=== PATIENT | female | born 1960 | race Caucasian/White ===

== ENCOUNTER → 2018-05-02 | Outpatient (CLI) | payer OTHER ==
[~2018-05-02] MED LIST: CHOL10002 PO; CIPRO500 MG PO; CLON.1 PO; CLON.2 PO; LEVO750 PO; LISHYD1012 PO; LOSA50 PO; OMEP20ER PO; OXYACE5T PO; TRIHYD253B PO; Ultram50 MG PO
[2018-05-06 14:10] LABS: HPV 16 Negative (Negative); HPV 18 Negative (Negative); HPV OTHER HR TYPES Negative (Negative)
== END | disposition home or self-care (01) ==
LOC: LAB 13:03 → LAB SHORT 13:03
PROVIDERS: Nurse Practitioner Women's Health
DX: Z12.4 Encounter for screening for malignant neoplasm of cervix (principal)
CPT/HCPCS: 87624; G0123

== ENCOUNTER → 2018-05-08 | Outpatient (CLI) | payer OTHER | END | disposition home or self-care (01) | LOC: PLD 07:22 → LAB SHORT 07:22 | DX: N84.0 Polyp of corpus uteri (principal); N87.9 Dysplasia of cervix uteri, unspecified | CPT/HCPCS: 88305 ==

== ENCOUNTER → 2019-08-10 | Outpatient (CLI) | payer OTHER | END | disposition home or self-care (01) | LOC: LAB SHORT 10:00 → LAB 10:00 | DX: R35.0 Frequency of micturition (principal) | CPT/HCPCS: 87077; 87086; 87186 ==

== ENCOUNTER 2021-01-23 07:15 | Inpatient (IN) | payer OTHER, SELFPAY ==
[~2021-01-23] VITALS: Ht 160 cm; Wt 97.7 kg
[~2021-01-23 07:15] MED LIST changes: +ATEN100 PO; +ATOR20 PO; -CHOL10002 PO; +Glucophage 850850 MG PO; +TIZA4; +VITAMIN D31000 UNI1 PO
[2021-01-23 08:24] LABS: Source, Urine Clean Catch
[2021-01-23 08:40] LABS: BASOPHILS ABSOLUTE AUTO 0.03 K/mm3 (0.00-0.23); BASOPHILS PERCENT AUTO 0 % (0-2); EOSINOPHILS PERCENT AUTO 0 % (0-6); Hematocrit 31.6 % (33.0-51.0); Hemoglobin 11.6 g/dL (11.5-16.0); IMMATURE GRAN PERCENT AUTO 1 % (0-1); LYMPHOCYTES PERCENT AUTO 9 % (21-46); MONOCYTES PERCENT AUTO 10 % (4-13); Mean Corpuscular HGB 31.9 pg (26.0-34.0); Mean Corpuscular HGB Conc 36.7 g/dL (31.5-36.5); Mean Corpuscular Volume 87 fL (80-100); Mean Platelet Volume 10.4 fL (9.1-12.4); NEUTROPHILS ABSOLUTE AUTO 12.74 K/mm3 (1.96-9.15); NEUTROPHILS PERCENT AUTO 81 % (41-73); Platelet Count 142 K/mm3 (150-400); RDW Coefficient Variation 11.9 % (11.7-14.2); RDW Standard Deviation 38.3 fL (35.1-46.3); Red Blood Cell Count 3.64 M/mm3 (3.80-5.20); White Blood Cell Count 15.77 K/mm3 (4.00-11.30)
[2021-01-23 08:44] LABS: Bilirubin, Urine Neg (Neg); Blood, Urine 3+ (Neg); Glucose Qualitative, Urine 1+ (Neg); Ketones, Urine Neg (Neg); Leukocyte Esterase, Urine 2+ (Neg); Nitrite, Urine Neg (Neg); Protein, Urine 3+ (Neg); Urobilinogen, Urine NORM (Normal)
[2021-01-23 08:55] LABS: Albumin, Blood 3.2 g/dL (3.4-5.0); Albumin/Globulin Ratio 0.7 (0.8-1.8); Bilirubin, Total 1.1 mg/dL (0.1-1.0); Bun/Creatinine Ratio 15.5 (12.0-20.0); Calcium, Blood 8.9 mg/dL (8.5-10.1); Creatinine, Blood 1.48 mg/dL (0.40-1.00); Globulin, Blood 4.3 g/dL (2.2-4.0); Potassium, Blood 3.5 mmol/L (3.5-5.5); Total Protein, Blood 7.5 g/dL (6.4-8.2)
[2021-01-23 09:07] LABS: Appearance, Urine Hazy (Clear); Color, Urine Yellow (P-Yellow)
[2021-01-23 09:08] LABS: Squamous Epithelial Cells Mod /hpf (Few)
[2021-01-23 09:09] LABS: Amorphous Light (0-Heavy); Bacteria Mod /hpf
[2021-01-23 10:01] LABS: Source, Urine Catheter
[2021-01-23 10:05] LABS: Appearance, Urine Cloudy (Clear); Bilirubin, Urine Neg (Neg); Blood, Urine 3+ (Neg); Color, Urine Yellow (P-Yellow); Glucose Qualitative, Urine 1+ (Neg); Ketones, Urine Neg (Neg); Leukocyte Esterase, Urine 2+ (Neg); Nitrite, Urine Neg (Neg); Protein, Urine 4+ (Neg); Urobilinogen, Urine NORM (Normal)
[2021-01-23 10:18] LABS: Amorphous Mod (0-Heavy); Bacteria Few /hpf; Mucus Light (0-Heavy); Squamous Epithelial Cells Not Seen /hpf (Few)
[2021-01-23] MEDS ORDERED: HYDCHL25 PO (12:06)
[2021-01-23] MEDS ORDERED: AMLODIPINE BESY10 MG PO (12:07)
[2021-01-23] MEDS ORDERED: CARVEDILOL12.5 MG PO (12:07)
[2021-01-23] MEDS ORDERED: SPIRONOLACTONE25 MG PO (12:07)
--- NOTE | 2021-01-23 13:00 | NUR ---
ASSUMED CARE: PT ASSISTED TO BSC. WEAKNESS NOTED. VOID OCCURRED, PT STATED IT BURNED DURING URINATION. TELE APPLIED AND PT IS NSR IN 80S. VSS AT THIS TIME. IVFS RUNNING. NO ACUTE NEEDS AT THIS TIME.
--- NOTE | 2021-01-23 16:43 | NUR ---
CALL TO DR BELL TO GIVE HIM AN UPDATE ON PT'S STATUS. 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 DR DELGADO THAT PT HAS BEEN HAVING N/V. NO CHANGES TO IVFS AT THIS TIME.
--- NOTE | 2021-01-23 18:42 | NUR ---
REPORT GIVEN TO MARCELINA ZHANG. PT TRANSFERRED VIA WHEEL CHAIR TO [facility]. PT STATED SHE WOULD CALL AND LET HIM KNOW OF KNEW BED ASSIGNMENT. PT REMAINS ON IV FLUIDS, TOOK A FEW BITES OF DINNER AND FELT SHE HAD NO APPETITE, UNDERLYING NAUSEA BUT NO FURTHER VOMITING. 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 NO FURTHER NEEDS OR CONCERNS.
[2021-01-24 03:27] LABS: BASOPHILS ABSOLUTE AUTO 0.01 K/mm3 (0.00-0.23); BASOPHILS PERCENT AUTO 0 % (0-2); EOSINOPHILS PERCENT AUTO 0 % (0-6); Hematocrit 28.3 % (33.0-51.0); Hemoglobin 10.1 g/dL (11.5-16.0); IMMATURE GRAN ABSOLUTE AUTO 0.03 K/mm3 (0.00-0.10); IMMATURE GRAN PERCENT AUTO 0 % (0-1); LYMPHOCYTES ABSOLUTE AUTO 0.88 K/mm3 (0.84-5.20); LYMPHOCYTES PERCENT AUTO 10 % (21-46); MONOCYTES ABSOLUTE AUTO 0.57 K/mm3 (0.16-1.47); MONOCYTES PERCENT AUTO 7 % (4-13); Mean Corpuscular HGB 31.9 pg (26.0-34.0); Mean Corpuscular HGB Conc 35.7 g/dL (31.5-36.5); Mean Corpuscular Volume 89 fL (80-100); NEUTROPHILS ABSOLUTE AUTO 6.99 K/mm3 (1.96-9.15); NEUTROPHILS PERCENT AUTO 82 % (41-73); Platelet Count 142 K/mm3 (150-400); RDW Standard Deviation 39.4 fL (35.1-46.3); Red Blood Cell Count 3.17 M/mm3 (3.80-5.20); White Blood Cell Count 8.48 K/mm3 (4.00-11.30)
--- NOTE | 2021-01-24 03:38 | NUR ---
THIS LN TOOK OVER CARE AT 1845 PATIENT IS ALERT AND ORIENTATED, LYING IN BED WATCHING TV ABLE TO MAKE NEEDS KNOWN, C/O OF HEADACHE TONIGHT RESOLVED WITH TYLENOL, SPIKED A TEMP AT THE SAME TIME OF 100.5, RESOLVED WITH TYLENOL REMAINED AFEBRILE, PATIENT IS DIAPHORETIC THIS AM STATES " HAS HOT FLASHES AND NIGHT SWEATS AT HOME FOR ABOUT 12 YEARS NOW" GAVE PATIENT AN ICE PACK WITH GOOD RESULTS. NO C/O OF PAIN THIS SHIFT, SLEEPING THROUGHOUT NIGHT.
[2021-01-24 03:45] LABS: Alanine Aminotransfer (ALT/SGP 19 U/L (12-78); Albumin, Blood 2.5 g/dL (3.4-5.0); Albumin/Globulin Ratio 0.6 (0.8-1.8); Alk Phos 92 U/L (50-136); Anion Gap 6 mmol/L (6-16); Aspartate Aminotrans (AST/SGOT 20 U/L (12-37); Bilirubin, Total 0.6 mg/dL (0.1-1.0); Blood Urea Nitrogen 16 mg/dL (8-24); Bun/Creatinine Ratio 17.7 (12.0-20.0); CO2, Blood 22 mmol/L (21-32); Chloride, Blood 107 mmol/L (98-108); Globulin, Blood 3.9 g/dL (2.2-4.0); Glomerular Filtration Rate >60 (60-); Glucose, Blood 174 mg/dL (70-99); Potassium, Blood 3.5 mmol/L (3.5-5.5); Sodium, Blood 135 mmol/L (136-145); Total Protein, Blood 6.4 g/dL (6.4-8.2)
--- NOTE | 2021-01-24 16:40 | NUR ---
NO ACUTE CHANGE FOR THE SHIFT, VITALS HAS BEEN STABLE. STATUS CHANGED TO MEDICAL WITH NO TELE. STILL HAS SOME BACK PAIN AND HEADACHE PAIN MEDICINE SWITCHED TO MORPHINE AND WAS MORE EFFECTIVE. PT CONTINUES ON IV ABO. HAD A DECENT BM THIS AM WAS STARTED ON STOOL SOFTENER, NO OTHER ISSUES REPORTED FOR THE SHIFT, PT TO POSS DC IN AM IF STABLE. WILL MONITOR UNTIL END OF SHIFT
--- NOTE | 2021-01-25 06:28 | NUR ---
PATIENT SLEPT THROUGHOUT MOST OF THE NIGHT C/O OF PAIN X 2 RECEIVED MORPHINE 1MG IVP WITH GOOD RESULTS, SIGRID MIDLINE IS SALINE LOCKED, IV ABX GIVEN, INDEPENDENT TO THE BATHROOM, STEADY GAIT, ABLE TO MAKE NEEDS KNOWN, CALLS APPROPRIATELY, SITTING UP WATCHING TV THIS AM.
[2021-01-25] MEDS ORDERED: Florastor250 MG PO (10:27)
[2021-01-25] MEDS ORDERED: LEVFLO500 PO (10:28)
--- NOTE | 2021-01-25 11:30 | NUR ---
PT DISCHARGED TO HOME TODAY WITH DISCHARGE ORDERS. PT TO CONTINUE PO ANTIBIOTICS AT HOME. NO OTHER ISSUES OR COMPLAINS THIS AM, VITALS HAS BEEN STABLE, PT HAS BEEN INDEPENDENT IN THE ROOM. DISCHARGE INSTRUCTIONS AND NEW MEDICATIONS DISCLOSED WITH THE PT, PT VERBALIZED UNDERSTANDING. ALL BELONGINGS SENT HOME WITH THE PT, PICKED UP PT AND PROVIDED TRANSPORTATION.
== END 2021-01-25 11:19 | disposition home or self-care (01) | DRG 872 ==
LOC: ER 07:15 → ICUE 11:42 → ICUW 11:42 → ICUE 12:43 → PCU 17:49
PROVIDERS: Emergency Medicine; Nurse Practitioner Acute Care; ADMIT Internal Medicine
DX: A41.51 Sepsis due to Escherichia coli [E. coli] (principal); N17.9 Acute kidney failure, unspecified; E87.1 Hypo-osmolality and hyponatremia; N39.0 Urinary tract infection, site not specified; N12 Tubulo-interstitial nephritis, not specified as acute or chronic; R65.20 Severe sepsis without septic shock; E11.65 Type 2 diabetes mellitus with hyperglycemia; I95.2 Hypotension due to drugs; T40.2X5A Adverse effect of other opioids, initial encounter; Z68.35 Body mass index [BMI] 35.0-35.9, adult; E66.01 Morbid (severe) obesity due to excess calories; G47.33 Obstructive sleep apnea (adult) (pediatric); E78.5 Hyperlipidemia, unspecified; I10 Essential (primary) hypertension; Z90.710 Acquired absence of both cervix and uterus; Z90.722 Acquired absence of ovaries, bilateral; Z79.899 Other long term (current) drug therapy; Z79.84 Long term (current) use of oral hypoglycemic drugs; Z88.8 Allergy status to other drugs, medicaments and biological substances; Z87.891 Personal history of nicotine dependence
CPT/HCPCS: 36415; 71045; 74176; 80053; 81001; 82947; 83605; 83690; 83735; 84145; 85025; 87040; 87077; 87086; 87186; 94660; 94762; 96365; 96375; 96376; 99285-25; A9270; J0692; J0696; J1170; J1644; J1885; J2270; J2405; J3010; J3475; J7030; P9612

== ENCOUNTER → 2021-04-03 | Outpatient (CLI) | payer OTHER ==
[~2021-04-03] MED LIST changes: +AMLODIPINE BESY10 MG PO; +CARVEDILOL12.5 MG PO; +Florastor250 MG PO; +HYDCHL25 PO; +LEVFLO500 PO; +SPIRONOLACTONE25 MG PO
[2021-04-03 13:28] LABS: Appearance, Urine Clear (Clear); Bilirubin, Urine Neg (Neg); Blood, Urine Neg (Neg); Glucose Qualitative, Urine Neg (Neg); Ketones, Urine Neg (Neg); Leukocyte Esterase, Urine Neg (Neg); Nitrite, Urine Pos (Neg); Protein, Urine Neg (Neg); Urobilinogen, Urine NORM (Normal)
[2021-04-03 13:51] LABS: Color, Urine Pale Yellow (P-Yellow)
[2021-04-03 13:52] LABS: Bacteria Many /hpf; Red Blood Cells, Urine 0-2 /hpf (0-2); Squamous Epithelial Cells Rare /hpf (Few); White Blood Cells, Urine 0-2 /hpf (0-5)
== END | disposition home or self-care (01) ==
LOC: LAB SHORT 09:21 → LAB 09:21
PROVIDERS: Physician Assistant
DX: N23 Unspecified renal colic (principal); N12 Tubulo-interstitial nephritis, not specified as acute or chronic
CPT/HCPCS: 81001; 87077; 87086; 87186

== ENCOUNTER → 2021-07-08 | Outpatient (CLI) | payer OTHER | END | disposition home or self-care (01) | LOC: LAB SHORT 09:50 → LAB 09:50 | DX: R35.0 Frequency of micturition (principal) | CPT/HCPCS: 87077; 87086; 87186 ==

== ENCOUNTER → 2023-06-27 | Outpatient (CLI) | payer OTHER | LOC: LAB SHORT 07:49 → PLD 07:49 | DX: L60.2 Onychogryphosis (principal); B35.1 Tinea unguium | CPT/HCPCS: 88305; 88312 ==

== ENCOUNTER → 2024-07-01 | Outpatient (CLI) | payer OTHER | END | disposition home or self-care (01) | LOC: LAB 13:02 → LAB SHORT 13:02 | DX: R30.0 Dysuria (principal) | CPT/HCPCS: 87077; 87086; 87186 ==

== ENCOUNTER 2024-10-27 07:03 | Emergency (ER) | payer OTHER ==
[~2024-10-27] VITALS: Ht 160 cm; Wt 85.7 kg
[2024-10-27] MEDS ORDERED: Prochlorperazine Edisylate 10 mg Vial IV ONE (07:35)
[2024-10-27] MEDS ORDERED: Meclizine HCl 25 MG Tab PO ONE (07:35)
[2024-10-27] MEDS ORDERED: MOTION RELIEF25 MG PO (08:50)
[2024-10-27 09:00] VITALS: BP 117/74
== END 2024-10-27 09:01 | disposition home or self-care (01) ==
LOC: ER 07:03
DX: R42 Dizziness and giddiness (principal); I10 Essential (primary) hypertension; E11.9 Type 2 diabetes mellitus without complications; E78.5 Hyperlipidemia, unspecified; Z87.891 Personal history of nicotine dependence; Z88.8 Allergy status to other drugs, medicaments and biological substances; Z79.84 Long term (current) use of oral hypoglycemic drugs; Z79.899 Other long term (current) drug therapy
CPT/HCPCS: 70450; 82947; 93005; 93010; 96374; 99284-25; A9270; J0780